=== PATIENT | male | born 2000 | race Caucasian/White ===

== ENCOUNTER 2024-03-18 07:08 | Outpatient (CLI) | payer BC, SELFPAY ==
--- NOTE | 2024-03-18 07:15 | CRLHL7_ITS ---
For Patients: As a result of the Century Cures Act, medical imaging exams and procedure reports are released immediately into your electronic medical record. You may view this report before your referring provider. If you have questions, please contact your health care provider. EXAM: MRI OF THE RIGHT FOOT, WITHOUT CONTRAST CLINICAL INDICATION: Stress fracture. Foot pain. COMPARISON PLAIN FILMS: None. COMPARISON CROSS-SECTIONAL IMAGING STUDIES: None. TECHNICAL: Axial, sagittal and coronal T1, PD and STIR images. FINDINGS: OSSEOUS STRUCTURES: Mild intramedullary edema in the plantar aspect of the 2nd metatarsal head could be due to contusion or stress reaction. Circumferential cortical thickening along the length of the 2nd metatarsal diaphysis with decreased T1 and T2 signal. No intramedullary edema, acute periosteal reaction or increased cortical signal. Findings consistent with sequela from stress reaction which is chronic. JOINT SPACES: Joint spaces within the visualized forefoot, at the midfoot forefoot junction and within the midfoot are maintained. LIGAMENTS: The Lisfranc ligament is intact. TMT joint alignment is maintained. The collateral ligaments of the MTP joints are intact. TENDONS AND MUSCLES: The flexor and extensor tendons are intact. The distal peroneus longus and brevis tendons are intact. No muscle atrophy or edema. SOFT TISSUES: The visualized plantar aponeurosis is intact. No Lezama???s neuroma or intermetatarsal bursitis. No soft tissue mass, fluid collection or ganglion. IMPRESSION: 1. Intramedullary edema in the plantar aspect of the 2nd metatarsal head could be due to a contusion or stress reaction. 2. Circumferential cortical thickening in the 2nd metatarsal diaphysis consistent with sequela from stress reaction which is chronic. 3. Remainder unremarkable. Dictated by Jer Gale MD @ 03/18/2024 4:36:29 PM (Electronically Signed)
== END 2024-03-18 07:09 | disposition home or self-care (01) ==
PROVIDERS: Visit Provider Podiatrist
DX: M79.671 Pain in right foot (principal); M84.371A Stress fracture, right ankle, initial encounter for fracture
CPT/HCPCS: 73718